=== PATIENT | female | born 1945 | race Caucasian/White ===

== ENCOUNTER 2016-12-17 05:34 | Day surgery (SDC) | payer MEDICARE, BC ==
[~2016-12-17] VITALS: Ht 154.9 cm; Wt 64.6 kg
[~2016-12-17 05:34] MED LIST: AMLO-145; CALC1TAB80; CARV6.2545 PO; CRES10; ESOM40CA; LOSA100T47; PROP10TA6; RAMI10CA48; RANI300T3
[2016-12-17 06:53] VITALS: BP 135/63; PULSE 52; RESP 20
[2016-12-17] MEDS ORDERED: pravastatin PO (06:58)
[2016-12-17] MEDS ORDERED: omeprazole PO (06:58)
[2016-12-17] MEDS ORDERED: ASPI81TA3 PO (06:59)
[2016-12-17] MEDS ORDERED: alendronate PO (06:59)
[2016-12-17 07:03] VITALS: Ht 154.9 cm; Wt 64.6 kg
[2016-12-17] MEDS ORDERED: MIDAZOLAM 1 MG/ML 2 ML INJ ONE (07:37)
[2016-12-17] MEDS ORDERED: FENTAnyl 50 MCG/ML VIAL ONE (07:37)
[2016-12-17 07:57] VITALS: BP 118/48; RESP 16
--- NOTE | 2016-12-17 11:18 | GILP ---
DATE OF PROCEDURE: 12/17/2016 NAME OF PROCEDURES: Esophagogastroduodenoscopy and biopsy. SURGEON: Jack Deluna MD PREOPERATIVE DIAGNOSES: 1. Abdominal pain. 2. Chronic heartburn. POSTOPERATIVE DIAGNOSES: 1. Gastroesophageal reflux disease. 2. Gastritis with erosions. 3. Gastric mucosal biopsies were taken for Helicobacter pylori test. INDICATION FOR THE PROCEDURE: Ms. Edgar Rojas is a 71-year-old female patient who had upper abd ominal pain and chronic heartburn, not responding to therapy. The patient was scheduled for endosco pic examination for further evaluation. The procedure and possible complications are well explained to the patient. The patient understood and consented to the procedure. DESCRIPTION OF PROCEDURE: Under the influence of fentanyl and Versed, the gastroscope was carefully introduced into the esophagus and under direct vision, it was advanced to the stomach and through t he pylorus into the duodenal bulb and descending duodenum. FINDINGS: ESOPHAGUS: The patient had gastroesophageal reflux disease. STOMACH: She had gastritis with erosions. Gastric mucosal biopsies were taken for H. pylori test. DUODENUM: Normal. She tolerated the procedure very well and there was no complication from the procedure. At the end of the procedures, she was awake with stable vital signs and she was discharged home to the care of her family. IMPRESSION: 1. Gastroesophageal reflux disease. 2. Gastritis with erosions. 3. Gastric mucosal biopsies were taken for Helicobacter pylori test. PLAN: 1. Omeprazole 40 mg p.o. q.a.m. 2. Zantac 300 mg p.o. at bedtime. 3. Await H. pylori test report. Dictated By: JACK MAURO/VILMA Conf#: [id number] DID#: [id number] CC: ZULMA MOON MD; JACK DELUNA MD;*EndCC*
--- NOTE | 2016-12-17 20:17 | CONS ---
DATE OF ADMISSION: 12/17/2016 DATE OF CONSULTATION: TYPE OF CONSULTATION: Gastroenterology. Dear Dr. Prabhu Wallace: I thank you very much for this kind referral. HISTORY OF PRESENT ILLNESS: The patient is a 71-year-old female patient who has been referred to me for further evaluation of upper abdominal pain associated with nausea. Patient has history of lisandra enrique ulcers in the past. She is not taking any nonsteroidal anti-inflammatory agents. She takes Nap rosyn occasionally. Her appetite has been good and there is no history of significant weight loss. There is no history of gallstones. She does not have any fever, chills or jaundice. There is no h istory of liver disease. The patient has history of colon polyps in the past. Patient had colonosc opy 3 years ago and no colon neoplasm was identified. She is hypertensive. She is not a diabetic. She does not have any heart disease or lung problem. There is no history of kidney disease. She h as arthritis and she is status post back surgery. She has hyperlipidemia. She is status post right eye surgery. She also had a hysterectomy in the past. SOCIAL HISTORY: She is a nonsmoker. She does not abuse alcohol. FAMILY HISTORY: Negative for gastrointestinal tract neoplasm. ALLERGIES: THERE IS NO HISTORY OF SIGNIFICANT DRUG ALLERGY. MEDICATIONS: 1. She takes medicines for high blood pressure and cholesterol. She does not remember the names. 2. Omeprazole 40 mg p.o. q.a.m. PHYSICAL EXAMINATION: VITAL SIGNS: She is 5 feet 1 inch tall and she weighs 140 pounds. BMI 26, blood pressure 136/84. HEART: Examination of the heart reveals normal first and second heart sounds. LUNGS: Clear. ABDOMEN: Soft without any distention. Liver and spleen are not palpable. There are no masses. Th ere is no focal tenderness. Normal bowel sounds are heard. CENTRAL NERVOUS SYSTEM: Does not reveal any focal neurological deficit. IMPRESSION: 1. Upper abdominal pain associated with nausea. 2. History of gastric ulcers. 3. Gastroesophageal reflux disease. 4. The patient has been taking omeprazole without relief. 5. History of colon polyps. 6. The patient had colonoscopy 3 years ago and no colon neoplasm was identified. 7. Hypertension. 8. Hyperlipidemia. 9. Status post right eye surgery. 10. Status post back surgery. 11. Status post hysterectomy. PLAN: 1. Continue omeprazole. 2. Endoscopic examination to rule out recurrent peptic ulcer disease, gastric neoplasm. 3. Abdominal ultrasound for further evaluation of abdominal pain. 4. Follow up with the primary MD for the management of hypertension. 5. Patient's next screening colonoscopy will be after 10 years from the previous colonoscopy which was done 3 years ago. The procedure and possible complications are well explained to the patient. She understands and con sents to the procedure. I thank you once again. With warmest personal regards, Dictated By: FIDELINA MAURO/VILMA Conf#: [id number] DID#: [id number]
== END 2016-12-17 11:35 | disposition home or self-care (01) ==
LOC: GIL 05:34
PROVIDERS: ATTEND Internal Medicine Gastroenterology
DX: K21.9 Gastro-esophageal reflux disease without esophagitis (principal); K29.60 Other gastritis without bleeding
CPT/HCPCS: 43239; 87081; J2250; J3010

== ENCOUNTER 2019-01-12 10:05 | Day surgery (SDC) | payer MEDICARE, BC ==
[~2019-01-12] VITALS: Ht 154.9 cm; Wt 62.5 kg
[~2019-01-12 10:05] MED LIST changes: -AMLO-145; +AMLO5TAB4 PO; +ASPI-817 PO; -CALC1TAB80; +CALC500T91 PO; +CARV6.25 PO; -CARV6.2545 PO; -CRES10; -ESOM40CA; +HYDR-3672 PO; -LOSA100T47; +OMEP20CA16 PO; +PRAV40TA76 PO; -PROP10TA6; -RAMI10CA48; +RAMI10CA48 PO; +RANI300T PO; -RANI300T3
[2019-01-12 10:49] VITALS: Ht 154.9 cm; Wt 62.5 kg
[2019-01-12 11:34] VITALS: BP 137/63; PULSE 64; RESP 18
[2019-01-12] MEDS ORDERED: FENTAnyl 50 MCG/ML VIAL ONE (11:38)
[2019-01-12] MEDS ORDERED: PROPOFOL 40 ML ONE (11:38)
[2019-01-12] MEDS ORDERED: LIDOCAINE 100 MG SYRINGE ONE (11:38)
--- NOTE | 2019-01-12 11:40 | PREAC ---
Date/Time of Note Date/Time of Note DATE: 01/12/19 TIME: 11:39 Anesthesia Eval and Record Evaluation Time Pre-Procedure Interview DATE: 01/12/19 TIME: 11:39 Age 73 Sex female NPO: 8 hrs Preoperative diagnosis abdominal pain, chronic heart burn, history of colon polyp Planned procedure egd, colonoscopy with biopsies Past Medical History Past Medical History: Includes Cardio: HTN, Dyslipidemia Surgery & Anesthesia Issues No known issue Meds Anticoagulation: No Beta Maria Antonia within 24 hr: Yes Reported Medications Carvedilol* (Coreg*) 6.25 Mg Tablet, 6.25 MG PO BID, #60 TAB 08/07/18 Calcium Carbonate ([id number]) 500 Mg Tablet, 500 MG PO BID, TAB 18 Hydralazine Hcl* (Hydralazine Hcl*) 50 Mg Tab, 50 MG PO BID, #120 TAB 08/07/18 Pravastatin Sodium* (Pravastatin Sodium*) 40 Mg Tablet, 40 MG PO HS, TAB 08/07/18 Omeprazole* (Omeprazole*) 20 Mg Capsule.dr, 20 MG PO AC BREAKFAST, #30 CAP 08/07/18 Ramipril (Ramipril) 10 Mg Capsule, 10 MG PO DAILY, CAP 18 Aspirin* (Aspirin* EC) 81 Mg Tablet.dr, 81 MG PO DAILY, TAB 08/07/18 Amlodipine Besylate* (Norvasc*) 5 Mg Tablet, 5 MG PO DAILY, TAB 18 Ranitidine Hcl* (Ranitidine Hcl*) 300 Mg Tablet, 300 MG PO HS, #30 TAB 08/07/18 Meds reviewed: Yes Allergies Coded Allergies: No Known Allergy (Verified , 12/17/16) Allergies Reviewed: Yes Labs/Studies Labs Reviewed: Reviewed by anesthesiologist test: N/A Pre-procedure Exam Last vitals Vital Signs Date Temp Pulse Resp B/P (MAP) Pulse Ox O2 O2 Flow FiO2 Time Delivery Rate 01/12/19 97.7 64 18 137/63 98 Room Air 11:34 (87) Airway: Adequate mouth opening, Adequate thyromental dist Mallampati: Mallampati II Teeth: Normal Lung: Normal Heart: Normal ASA Physical Status ASA physical status: 2 Emergency: None Planned Anesthetic General/MAC: MAC Planned Pain Management Parenteral pain med Pre-operative Attestations Prior to commencing anesthesia and surgery, the patient was re-evaluated, there was verification of: *The patient's identity *The results of appropriate recent lab work and preoperative vital signs *The above evaluation not changing prior to induction *Anesthetic plan, risk benefits, alternative and complications discussed with patient/family; questions answered; patient/family understands, accepts and wishes to proceed. Raymond Ramon M.D. January 12, 2019 11:40
--- NOTE | 2019-01-12 12:05 | PAC ---
Date/Time of Note Date/Time of Note DATE: 01/12/19 TIME: 12:05 Post-Anesthesia Notes Post-Anesthesia Note Last documented vital signs Vital Signs Date Temp Pulse Resp B/P (MAP) Pulse Ox O2 O2 Flow FiO2 Time Delivery Rate 01/12/19 97.7 64 18 137/63 98 Room Air 11:34 (87) Activity: WNL Respiratory function: WNL Cardiovascular function: WNL Mental status: Baseline Pain reasonably controlled: Yes Hydration appropriate: Yes Nausea/Vomiting absent: Yes Raymond Ramon M.D. January 12, 2019 12:05
--- NOTE | 2019-01-13 06:18 | CONS ---
DATE OF ADMISSION: 01/12/2019 DATE OF CONSULTATION: PATIENT NAME: BISI ALAN TYPE OF CONSULTATION: Gastroenterology Dear Dr. Prabhu Wallace: I thank you very much for this kind referral. Ms. Bisi Alan is a 73-year-old female patient wh o has been referred to me for further evaluation of change in the bowel habit. The patient has histo ry of colon polyp. She was recently hospitalized with a small-bowel obstruction which resolved with a nasogastric tube and decompression. She denies any history of rectal bleeding. Her appetite is go od and no weight loss. The patient also complains of upper abdominal pain and chronic heartburn not completely responding to therapy with omeprazole and Zantac. She is on baby aspirin a day. No histo ry of gallstones or liver disease. She is hypertensive. Not a diabetic. No heart disease, lung pro blem or kidney disease. She has hyperlipidemia. She is status post hysterectomy and back surgery. SOCIAL HISTORY: Nonsmoker. No alcohol abuse. FAMILY HISTORY: No family history of gastrointestinal tract neoplasm. ALLERGIES: No drug allergies. MEDICATIONS: 1. Omeprazole 40 mg p.o. daily. 2. Zantac 300 mg p.o. daily. 3. Hydralazine 50 mg p.o. b.i.d. 4. Carvedilol 6.5 mg p.o. b.i.d. 5. Ramipril 10 mg p.o. daily. 6. Amlodipine 5 mg p.o. daily. 7. Pravastatin 40 mg p.o. daily. 8. Aspirin 81 mg p.o. daily. PHYSICAL EXAMINATION: GENERAL: She is 5 feet 1 inch tall and weighs 138 pounds. BMI 26, blood pressure 130/78. HEART: Normal heart sounds. LUNGS: Clear. ABDOMEN: Soft, no masses. Normal bowel sounds. NEUROLOGIC: Normal neurological exam. IMPRESSION: 1. Change in the bowel habit. 2. History of colon polyp. 3. Status post small-bowel obstruction. 4. Upper abdominal pain and chronic heartburn, not responding to therapy with omeprazole and Zantac. 5. Hypertension. 6. Hyperlipidemia. 7. Status post hysterectomy and back surgery. 8. The patient is on baby aspirin a day. PLAN: 1. Follow up with the primary MD for watching the BMI and further management of hypertension. 2. Colonoscopy and upper endoscopy for further evaluation. The procedures and possible complications are well explained to the patient. She understands and con sents to the procedures. I thank you once again. With warmest personal regards, Dictated By: FIDELINA MAURO/VILMA Conf#: [id number] DID#: [id number]
== END 2019-01-12 12:59 | disposition home or self-care (01) ==
LOC: GIL 10:05
PROVIDERS: ATTEND Internal Medicine Gastroenterology
DX: R19.4 Change in bowel habit (principal); K64.8 Other hemorrhoids; K21.9 Gastro-esophageal reflux disease without esophagitis
CPT/HCPCS: 43239; 45378; 88305; J2001; J3010